=== PATIENT | female | born 1960 | race Caucasian/White ===

== ENCOUNTER 2016-06-20 10:36 | Emergency (ER) | payer MEDICAID ==
[2016-06-20] MEDS ORDERED: SODIUM CHLORIDE 0.9% 1,000 ML ONE (11:28)
== END 2016-06-20 13:45 | disposition home or self-care (01) ==
LOC: ER 10:36
DX: R06.00 Dyspnea, unspecified (principal); B34.9 Viral infection, unspecified; F17.210 Nicotine dependence, cigarettes, uncomplicated
CPT/HCPCS: 36415; 71010; 80053; 81003; 85025; 87804; 93005; 96360